=== PATIENT | female | born 1950 | race Caucasian/White ===

== ENCOUNTER 2017-12-28 05:47 | Inpatient (IN) ==
[2017-12-16 12:05] LABS: Basophils # 0.1 10*3/uL (0.0-0.2); Basophils % 0.7 % (0.0-0.8); Eosinophils # 0.3 10*3/uL (0.0-0.87); Eosinophils % 3.4 % (0.00-10.9); Hematocrit 38.9 VOL% (35.7-47.0); Immature Granulocytes % 0.3 %; Immature Granulocytes Absolute 0.03 #; Lymphocytes # 2.8 10*3/uL (1.4-4.0); Lymphocytes % 29.1 % (21.3-54.2); Mean Corpuscular HGB Conc 33.4 GM/DL (32-36); Mean Corpuscular Hemoglobin 31 PG (27-34); Mean Corpuscular Volume 92.2 FL (87-102); Mean Platelet Volume 9.2 FL (9.6-12.0); Monocytes # 0.7 10*3/uL (0.11-0.8); Monocytes % 6.7 % (1.7-12.7); Neutrophils # 5.8 10*3/uL (1.4-7.4); Neutrophils % 59.8 % (38.7-73.9); Platelet Count 330 T/CUMM (130-400); Red Blood Count 4.22 MC/CUMM (3.8-5.5); Red Cell Distribution Width 12.9 % (9.3-17.3); White Blood Count 9.6 T/CUMM (4-12)
[2017-12-16 12:14] LABS: PT Patient Result 10.8 SECS; Partial Thromboplastin Time 25.2 SECS (0-40)
[2017-12-16 12:27] LABS: Albumin 3.7 G/DL (3.4-5.0); Bilirubin,Total 0.8 MG/DL (0.2-1.0); Calcium 9.4 MG/DL (8.5-10.1)
[2017-12-16 12:28] LABS: Potassium 3.1 MMOL/L (3.5-5.1)
[2017-12-16 12:52] LABS: Apearance,Urine CLEAR (Clear); Bacteria,Urine Moderate /HPF (Few); Bilirubin,Urine Negative (Negative); Blood, Urine Moderate mg/dL (Negative); Glucose,Urine (UA) Negative (Negative); Ketones,Urine Negative (Negative); Mucus,Urine Occasional /LPF (Occasional); Nitrite,Urine Negative (Negative); Protein,Urine Negative; RBC,Urine 5 /HPF (0-4); Squamous Epithelial Cell,Urine Occasional /HPF (0-10); Urine Color Yellow (Yellow); Urine Specific Gravity 1.011 (1.001-1.035); Urine Urobilinogen < 2.0 EU/DL (0.2-1.0); WBC,Urine 1 /HPF (0-6)
[2017-12-28] MEDS ORDERED: ceFAZolin 1,000 MG in SYRINGE 1 EACH IV ONE (06:00)
[2017-12-28] MEDS ORDERED: LACTATED RINGERS 1,000 ML IV SCH (06:00)
[2017-12-28] MEDS ORDERED: VANCOMYCIN INJ 1,000 MG in SODIUM CHLORIDE 0.9% 250 ML IV ONE (06:00)
[2017-12-28] MEDS ORDERED: TRANEXAMIC ACID 1,000 MG/10 ML VIAL ONE (06:21)
[2017-12-28] MEDS ORDERED: BUPIVACAINE SPINAL 0.75% 2 ML AMP SPINAL ONE (06:21)
[2017-12-28] MEDS ORDERED: ROPIVACAINE 0.5% 30 ML VIAL ONE (06:25)
[2017-12-28] MEDS ORDERED: VANCOMYCIN 1,000 MG VIAL ONE (06:48)
[2017-12-28] MEDS ORDERED: ceFAZolin 1,000 MG VIAL ONE (06:48)
[2017-12-28] MEDS ORDERED: ZALEPLON 5 MG CAPSULE PO PRN (07:21)
[2017-12-28] MEDS ORDERED: MAGNESIUM HYDROXIDE SUSP 30 ML UDCUP PO PRN (07:21)
[2017-12-28] MEDS ORDERED: ONDANSETRON 4 MG/2 ML VIAL IV PRN (07:21)
[2017-12-28] MEDS ORDERED: diphenhydrAMINE CAP 25 MG CAPSULE PO PRN (07:21)
[2017-12-28] MEDS ORDERED: MORPHINE 4 MG/1 ML VIAL IV PRN ×2 (07:21)
[2017-12-28] MEDS ORDERED: oxyCODONE IR 5 MG TABLET PO PRN ×2 (07:21)
[2017-12-28] MEDS ORDERED: BACITRACIN OINT 0.9 GM PACK TOP ONE (08:17)
[2017-12-28] MEDS ORDERED: MIDAZOLAM 2 MG/2 ML VIAL ONE (08:55)
[2017-12-28] MEDS ORDERED: KETOROLAC 30 MG/1 ML VIAL ONE (08:56)
[2017-12-28] MEDS ORDERED: PROPOFOL 200 MG/20 ML VIAL IV ONE (08:56)
[2017-12-28] MEDS ORDERED: fentaNYL 100 MCG/2 ML VIAL ONE (08:56)
[2017-12-28] MEDS ORDERED: ONDANSETRON 4 MG/2 ML VIAL ONE (08:56)
[2017-12-28] MEDS ORDERED: PHENYLEPHRINE 1 MG/10 ML SYRINGE IV ONE (08:57)
[2017-12-28] MEDS ORDERED: SODIUM CHLORIDE 0.9% 200 ML IV ONE (08:57)
[2017-12-28] MEDS ORDERED: LACTATED RINGERS 1,000 ML IV ONE (08:57)
[2017-12-28] MEDS: KETOROLAC 30 MG/1 ML VIAL IV SCH ×3 (08:58→19:32)
[2017-12-28] MEDS: LACTATED RINGERS 1,000 ML IV SCH ×2 (08:59→17:09)
[2017-12-28] MEDS ORDERED: INFLUENZA VIRUS VACCINE 0.5 ML SYRINGE IM ONE (09:59)
[2017-12-28] MEDS ORDERED: POTASSIUM CHLORIDE 20 MEQ TABLET PO PRN (13:11)
[2017-12-28] MEDS: ACETAMINOPHEN 500 MG TABLET PO SCH ×3 (14:14→22:51)
[2017-12-28] MEDS: ceFAZolin 2,000 MG in PREMIX 1 EACH IV SCH ×2 (14:15→19:35)
[2017-12-28] MEDS: DOCUSATE SODIUM 100 MG CAPSULE PO SCH ×2 (18:48→21:39)
[2017-12-28] MEDS: THYROID 60 MG TABLET PO SCH (19:20)
[2017-12-28] MEDS: ALLOPURINOL 100 MG TABLET PO SCH (19:29)
[2017-12-28] MEDS: CALCIUM (CARBONATE)/VITAMIN D 600 MG-400 UNIT TABLET PO SCH (19:30)
[2017-12-28] MEDS: ATORVASTATIN 20 MG TABLET PO SCH (19:36)
[2017-12-29] MEDS: KETOROLAC 30 MG/1 ML VIAL IV SCH (00:33)
[2017-12-29] MEDS: LACTATED RINGERS 1,000 ML IV SCH ×2 (01:15→08:46)
[2017-12-29] MEDS: ACETAMINOPHEN 500 MG TABLET PO SCH (04:23)
[2017-12-29] MEDS: FONDAPARINUX 2.5 MG/0.5 ML SYRINGE SUBCUT SCH (05:45)
[2017-12-29 06:34] LABS: Calcium 8.6 MG/DL (8.5-10.1); Osmolality,Calculated 284.3 MOS/KG (273-304)
[2017-12-29 06:35] LABS: Potassium 4.5 MMOL/L (3.5-5.1); Risk Ratio 2.62
[2017-12-29 06:48] LABS: Calcium 8.6 MG/DL (8.5-10.1); Osmolality,Calculated 285.3 MOS/KG (273-304); Potassium 4.3 MMOL/L (3.5-5.1)
[2017-12-29 07:57] LABS: Basophils % 0.5 % (0.0-0.8); Eosinophils # 0.3 10*3/uL (0.0-0.87); Hematocrit 30.4 VOL% (35.7-47.0); Hemoglobin 9.7 GM/DL (12.0-16.0); Immature Granulocytes % 0.3 %; Immature Granulocytes Absolute 0.02 #; Lymphocytes # 1.7 10*3/uL (1.4-4.0); Lymphocytes % 29.1 % (21.3-54.2); Mean Corpuscular HGB Conc 31.9 GM/DL (32-36); Mean Corpuscular Hemoglobin 31 PG (27-34); Mean Corpuscular Volume 96.2 FL (87-102); Mean Platelet Volume 9.9 FL (9.6-12.0); Monocytes # 0.7 10*3/uL (0.11-0.8); Monocytes % 12.1 % (1.7-12.7); Neutrophils # 3.1 10*3/uL (1.4-7.4); Platelet Count 201 T/CUMM (130-400); Red Blood Count 3.16 MC/CUMM (3.8-5.5); Red Cell Distribution Width 13.2 % (9.3-17.3); White Blood Count 5.8 T/CUMM (4-12)
[2017-12-29] MEDS: CALCIUM (CARBONATE)/VITAMIN D 600 MG-400 UNIT TABLET PO SCH (09:37)
[2017-12-29] MEDS: THYROID 60 MG TABLET PO SCH (09:37)
[2017-12-29] MEDS: PANTOPRAZOLE 40 MG TABLET PO SCH (09:38)
[2017-12-29] MEDS: ALLOPURINOL 100 MG TABLET PO SCH (09:38)
[2017-12-29] MEDS: METOPROLOL SUCCINATE XL 50 MG TABLET PO SCH (09:38)
[2017-12-29] MEDS: DOCUSATE SODIUM 100 MG CAPSULE PO SCH ×2 (09:38→20:46)
[2017-12-29] MEDS: ATORVASTATIN 20 MG TABLET PO SCH (09:38)
[2017-12-29] MEDS: IRBESARTAN 150 MG TABLET PO SCH (09:41)
[2017-12-29] MEDS: hydroCHLOROthiazide 25 MG TABLET PO SCH (09:41)
[2017-12-29] MEDS: CELECOXIB 200 MG CAPSULE PO SCH (13:24)
[2017-12-30] MEDS: FONDAPARINUX 2.5 MG/0.5 ML SYRINGE SUBCUT SCH (05:00)
[2017-12-30 05:11] LABS: Basophils % 0.3 % (0.0-0.8); Eosinophils # 0.4 10*3/uL (0.0-0.87); Eosinophils % 3.5 % (0.00-10.9); Hematocrit 30.7 VOL% (35.7-47.0); Hemoglobin 9.9 GM/DL (12.0-16.0); Immature Granulocytes % 0.4 %; Immature Granulocytes Absolute 0.04 #; Lymphocytes # 1.9 10*3/uL (1.4-4.0); Mean Corpuscular HGB Conc 32.2 GM/DL (32-36); Mean Corpuscular Hemoglobin 31 PG (27-34); Mean Corpuscular Volume 94.8 FL (87-102); Mean Platelet Volume 9.8 FL (9.6-12.0); Monocytes # 1.1 10*3/uL (0.11-0.8); Monocytes % 10.5 % (1.7-12.7); Neutrophils # 6.7 10*3/uL (1.4-7.4); Neutrophils % 66.3 % (38.7-73.9); Platelet Count 210 T/CUMM (130-400); Red Blood Count 3.24 MC/CUMM (3.8-5.5); Red Cell Distribution Width 13.2 % (9.3-17.3); White Blood Count 10.1 T/CUMM (4-12)
[2017-12-30 07:56] VITALS: BP 118/66
[2017-12-30] MEDS: IRBESARTAN 150 MG TABLET PO SCH (08:04)
[2017-12-30] MEDS: CELECOXIB 200 MG CAPSULE PO SCH (08:05)
[2017-12-30] MEDS: CALCIUM (CARBONATE)/VITAMIN D 600 MG-400 UNIT TABLET PO SCH (08:05)
[2017-12-30] MEDS: THYROID 60 MG TABLET PO SCH (08:05)
[2017-12-30] MEDS: DOCUSATE SODIUM 100 MG CAPSULE PO SCH (08:05)
[2017-12-30] MEDS: METOPROLOL SUCCINATE XL 50 MG TABLET PO SCH (08:05)
[2017-12-30] MEDS: PANTOPRAZOLE 40 MG TABLET PO SCH (08:05)
[2017-12-30] MEDS: hydroCHLOROthiazide 25 MG TABLET PO SCH (08:05)
[2017-12-30] MEDS: ALLOPURINOL 100 MG TABLET PO SCH (08:06)
[2017-12-30] MEDS: ATORVASTATIN 20 MG TABLET PO SCH (08:06)
== END 2017-12-30 11:50 | disposition home health service (06) | DRG 470 ==
LOC: N.SDSINP 05:47 → N.OR 05:47 → N.3E 07:21
PROVIDERS: ADMIT Orthopaedic Surgery; ATTEND Orthopaedic Surgery

== ENCOUNTER 2018-06-27 00:45 | Inpatient (IN) ==
[2018-06-27] MEDS ORDERED: KETOROLAC 30 MG/1 ML VIAL IV STA (01:52)
[2018-06-27] MEDS ORDERED: ONDANSETRON 4 MG/2 ML VIAL IV STA (01:52)
[2018-06-27] MEDS ORDERED: HYDROmorphone 2 MG/1 ML VIAL IV STA (01:52)
[2018-06-27 02:46] LABS: Basophils # 0.1 10*3/uL (0.0-0.2); Basophils % 0.3 % (0.0-0.8); Eosinophils % 0.3 % (0.00-10.9); Hematocrit 38.9 VOL% (35.7-47.0); Hemoglobin 12.5 GM/DL (12.0-16.0); Immature Granulocytes % 0.6 %; Immature Granulocytes Absolute 0.08 #; Lymphocytes # 1.6 10*3/uL (1.4-4.0); Lymphocytes % 11.4 % (21.3-54.2); Mean Corpuscular HGB Conc 32.1 GM/DL (32-36); Mean Corpuscular Volume 92.8 FL (87-102); Mean Platelet Volume 9.7 FL (9.6-12.0); Monocytes % 8.4 % (1.7-12.7); Platelet Count 263 T/CUMM (130-400); Red Blood Count 4.19 MC/CUMM (3.8-5.5); Red Cell Distribution Width 13.4 % (9.3-17.3); White Blood Count 14.3 T/CUMM (4-12)
[2018-06-27 03:07] LABS: Albumin 3.7 G/DL (3.4-5.0); Bilirubin,Total 1.1 MG/DL (0.2-1.0); Calcium 8.9 MG/DL (8.5-10.1); Total Protein 7.6 G/DL (6.4-8.3)
[2018-06-27 03:09] LABS: Apearance,Urine CLEAR (Clear); Bacteria,Urine Occasional /HPF (Few); Bilirubin,Urine Negative (Negative); Blood, Urine Moderate mg/dL (Negative); Glucose,Urine (UA) Negative (Negative); Ketones,Urine Negative (Negative); Mucus,Urine Occasional /LPF (Occasional); Nitrite,Urine Negative (Negative); Protein,Urine Negative; RBC,Urine 8 /HPF (0-4); Squamous Epithelial Cell,Urine Occasional /HPF (0-10); Urine Color Yellow (Yellow); Urine Specific Gravity 1.014 (1.001-1.035); Urine Urobilinogen < 2.0 EU/DL (0.2-1.0); WBC,Urine <1 /HPF (0-6)
[2018-06-27] MEDS ORDERED: CEFEPIME 2,000 MG in SODIUM CHLORIDE 0.9% 100 ML IV STA (04:03)
[2018-06-27] MEDS ORDERED: metroNIDAZOLE INJ 500 MG in PREMIX 1 EACH IV STA (04:03)
[2018-06-27] MEDS ORDERED: diphenhydrAMINE CAP 25 MG CAPSULE PO PRN (05:21)
[2018-06-27] MEDS ORDERED: LACTULOSE 20 GM/30 ML UDCUP PO PRN (05:21)
[2018-06-27] MEDS ORDERED: MORPHINE 4 MG/1 ML VIAL IV PRN (05:21)
[2018-06-27] MEDS ORDERED: ONDANSETRON 4 MG/2 ML VIAL IV PRN (05:21)
[2018-06-27] MEDS ORDERED: ACETAMINOPHEN 325 MG TABLET PO PRN (05:21)
[2018-06-27] MEDS ORDERED: PROMETHAZINE 25 MG/1 ML VIAL IM PRN (05:21)
[2018-06-27] MEDS: SODIUM CHLORIDE 0.9% 1,000 ML IV SCH ×3 (06:54→22:30)
[2018-06-27] MEDS: PIPERACILLIN/TAZOBACTAM 3,375 MG in SODIUM CHLORIDE 0.9% 100 ML IV SCH ×3 (06:54→22:31)
[2018-06-27] MEDS: PANTOPRAZOLE 40 MG TABLET PO SCH (09:04)
[2018-06-27] MEDS: THYROID 60 MG TABLET PO SCH (09:05)
[2018-06-27] MEDS: oxyCODONE/ACETAMINOPHEN 5-325 MG TABLET PO PRN (23:03)
[2018-06-28] MEDS: PIPERACILLIN/TAZOBACTAM 3,375 MG in SODIUM CHLORIDE 0.9% 100 ML IV SCH ×3 (06:59→23:03)
[2018-06-28] MEDS: SODIUM CHLORIDE 0.9% 1,000 ML IV SCH ×2 (07:04→13:19)
[2018-06-28 07:39] LABS: Basophils # 0.1 10*3/uL (0.0-0.2); Basophils % 0.7 % (0.0-0.8); Eosinophils # 0.2 10*3/uL (0.0-0.87); Eosinophils % 2.8 % (0.00-10.9); Hematocrit 32.2 VOL% (35.7-47.0); Immature Granulocytes % 0.3 %; Immature Granulocytes Absolute 0.02 #; Lymphocytes # 1.2 10*3/uL (1.4-4.0); Mean Corpuscular HGB Conc 32.6 GM/DL (32-36); Mean Corpuscular Volume 92.8 FL (87-102); Mean Platelet Volume 9.7 FL (9.6-12.0); Monocytes % 12.2 % (1.7-12.7); Red Blood Count 3.47 MC/CUMM (3.8-5.5); Red Cell Distribution Width 13.3 % (9.3-17.3)
[2018-06-28 07:42] LABS: Hemoglobin 10.5 GM/DL (12.0-16.0); Platelet Count 203 T/CUMM (130-400); White Blood Count 7.2 T/CUMM (4-12)
[2018-06-28 07:57] LABS: Albumin 2.9 G/DL (3.4-5.0); Bilirubin,Total 1.5 MG/DL (0.2-1.0); Calcium 8.1 MG/DL (8.5-10.1); Osmolality,Calculated 275.5 MOS/KG (273-304); Total Protein 6.4 G/DL (6.4-8.3)
[2018-06-28] MEDS: PANTOPRAZOLE 40 MG TABLET PO SCH (09:06)
[2018-06-28] MEDS: THYROID 60 MG TABLET PO SCH (09:06)
[2018-06-28] MEDS: oxyCODONE/ACETAMINOPHEN 5-325 MG TABLET PO PRN ×2 (09:26→22:58)
[2018-06-29] MEDS: THYROID 60 MG TABLET PO SCH (10:02)
[2018-06-29] MEDS: PANTOPRAZOLE 40 MG TABLET PO SCH (10:02)
[2018-06-29 10:45] VITALS: BP 106/57
[2018-06-29] MEDS: PIPERACILLIN/TAZOBACTAM 3,375 MG in SODIUM CHLORIDE 0.9% 100 ML IV SCH (11:12)
[2018-06-29] MEDS: SODIUM CHLORIDE 0.9% 1,000 ML IV SCH (11:12)
== END 2018-06-29 11:10 | disposition home or self-care (01) | DRG 392 ==
LOC: EDUNIT# → N.EDINP 00:45 → N.ED 00:45 → N.5E 05:29
PROVIDERS: ADMIT Internal Medicine; ATTEND Internal Medicine